=== PATIENT | male | born 1975 | race Caucasian/White ===

== ENCOUNTER 2020-02-21 08:45 | Emergency (ER) | payer OTHER ==
[~2020-02-21] VITALS: Ht 165.1 cm; Wt 72.7 kg
[2020-02-21] MEDS ORDERED: IOHEXOL 350 MG/ML 100 ML VIAL. IV ONE (09:15)
--- NOTE | 2020-02-21 09:15 | PHYS DOC ---
Past History Past Medical History: Other (PTSD, TBI) Adult General HPI HPI Patient is a 44-year-old male who presents for concern of DVT/PE. 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 No history of clotting disorders, no hemoptysis, inherited coagulopathies etc, no daily use of blood thinners, no prior coagulopathic work- up. Patient had and approximately 20-hour flight from [facility] that landed late yesterday evening. On arrival, patient noticed focal pain of right posterior calf and knee. Patient was able to sleep and woke up this morning with continued pain. He also notes new onset dyspnea when walking up stairs to his apartment which is new for him. He discussed his symptoms with who is a family medicine physician, she subsequently recommended he seek medical evaluation [facility] [employer] [facility]. Nonetheless, it is the weekend and he could not be seen and evaluated, on-call nurse subsequently referred patient to our facility for evaluation for DVT/PE rule out given concerning symptoms of right lower extremity pain and new onset dyspnea after long distance travel in seated position. Review of Systems Review of Systems Fourteen body systems of review of systems have been reviewed. See HPI for pertinent positives and negative responses, other nesbitt all other systems are negative, non-pertinent or non-contributory Current Medications Current Medications Current Medications Medications (Trade) Dose Ordered Sig/Yue Start Time Stop Time Status Last Admin Dose Admin Iohexol (Omnipaque 350 Mg/ml) 100 ml 1X ONCE 02/21/20 09:15 02/21/20 09:16 UNV Physical Exam Physical Exam Constitutional: Well developed, well nourished, no acute distress, non-toxic appearance. HENT: Normocephalic, atraumatic, bilateral external ears normal, oropharynx moist, no oral exudates, nose normal. Eyes: PERRLA, EOMI, conjunctiva normal, no discharge. Neck: Normal range of motion, no tenderness, supple, no stridor. Cardiovascular: Heart rate regular, sinus rhythm, no murmurs rubs or gallops Lungs & Thorax: Bilateral breath sounds clear to auscultation Abdomen: Bowel sounds normal, soft, no tenderness, no masses, no pulsatile ma sses. Nonsurgical abdomen, no peritoneal signs Skin: Warm, dry, no erythema, no rash. Back: No tenderness, no CVA tenderness. Extremities: No cyanosis, no clubbing, ROM intact, no edema. Tenderness to palpation of posterior right knee without any palpable cords or abnormalities, positive Homans sign of right calf, bilateral circumference of lower extremities equal and symmetric Neurologic: Alert and oriented X 3, grossly normal motor & sensory function, no focal deficits noted. Psychologic: Affect normal, judgement normal, mood normal. Current Patient Data Vital Signs Vital Signs Date Time Temp Pulse Resp B/P (MAP) Pulse Ox O2 Delivery O2 Flow Rate FiO2 02/21/20 09:38 97.9 62 18 139/91 (107) 100 Lab Results Laboratory Tests Test 02/21/20 09:11 White Blood Count 6.3 x10^3/uL (4.0-11.0) Red Blood Count 4.34 x10^6/uL (4.30-5.70) Hemoglobin 13.5 g/dL (13.0-17.5) Hematocrit 40.2 % (39.0-53.0) Mean Corpuscular Volume 93 fL (79-100) Mean Corpuscular Hemoglobin 31 pg (25-35) Mean Corpuscular Hemoglobin Concent 34 g/dL (31-37) Red Cell Distribution Width 13.5 % (11.5-14.5) Platelet Count 167 x10^3/uL (140-400) Neutrophils (%) (Auto) 51 % (31-73) Lymphocytes (%) (Auto) 36 % (24-48) Monocytes (%) (Auto) 8 % (0-9) Eosinophils (%) (Auto) 4 % (0-3) Basophils (%) (Auto) 0 % (0-3) Neutrophils # (Auto) 3.2 x10^3uL (1.8-7.7) Lymphocytes # (Auto) 2.3 x10^3/uL (1.0-4.8) Monocytes # (Auto) 0.5 x10^3/uL (0.0-1.1) Eosinophils # (Auto) 0.3 x10^3/uL (0.0-0.7) Basophils # (Auto) 0.0 x10^3/uL (0.0-0.2) Sodium Level 141 mmol/L (136-145) Potassium Level 3.7 mmol/L (3.5-5.1) Chloride Level 103 mmol/L (98-107) Carbon Dioxide Level 25 mmol/L (21-32) Anion Gap 13 (6-14) Blood Urea Nitrogen 17 mg/dL (8-26) Creatinine 1.2 mg/dL (0.7-1.3) Estimated GFR (Cockcroft-Gault) 65.5 Glucose Level 92 mg/dL (70-99) Calcium Level 8.9 mg/dL (8.5-10.1) Troponin I Quantitative < 0.017 ng/mL (0-0.055) ZZ-[id number]-Type Natriuretic Peptide 22 pg/mL (0-124) EKG EKG ECG ordered and interpreted by myself at 0937 hrs. as sinus rhythm at 61 bpm, unremarkable intervals, left axis deviation, no acute ischemic findings, no STEMI Radiology/Procedures Radiology/Procedures PROCEDURE: VENOUS LOWER EXTREMITY RIGHT EXAM: Right lower extremity venous Doppler sonogram. HISTORY: Pain and swelling. TECHNIQUE: Ahuja scale and color Doppler sonographic evaluation of the right lower extremity veins with spectral waveform analysis was performed. FINDINGS: There is normal color flow, normal compressibility and there are normal spectral waveforms in the common femoral, superficial femoral, popliteal, posterior tibial and greater saphenous veins. IMPRESSION: No Doppler evidence of lower extremity deep venous thrombosis. Electronically signed by: Tania oGdinez MD (02/21/2020 9:51 AM) [id number] PROCEDURE: CT ANGIOGRAPHY CHEST Study: CT CHEST WITH CONTRAST - PULMONARY ANGIOGRAM History: Shortness of breath. Pulmonary embolism. Comparison: None. Technique: Helical CT of the chest performed after the administration of 100 cc Omnipaque 350 intravenous contrast and timed for angiographic evaluation of the pulmonary arteries per PE protocol. Coronal and sagittal 3D MIP reformations were obtained. One or more of the following individualized dose reduction techniques were utilized for this examination: 1. Automated exposure control 2. Adjustment of the mA and/or kV according to patient size 3. Use of iterative reconstruction technique. Findings: Pulmonary Arteries: No main, lobar or segmental pulmonary embolism. Normal main pulmonary artery caliber. Heart/Systemic Vasculature: Aberrant right subclavian artery coursing posterior to the esophagus. Nonaneurysmal aorta. No CT findings of overt right heart strain. Mediastinum: Probable very small hiatal hernia. No pathologically enlarged mediastinal or hilar lymph nodes. Lungs: Variant anatomy azygos lobe. Minimal volume loss. No localized consolidation. No pleural effusion or pneumothorax. The central airways are normally aerated. Neck/Axilla/Body Wall: Unremarkable. Upper Abdomen: No acute abnormality. Bones: Mineralization appearing to be within the right subscapularis tendon substance, image 1 series 4. Tiny foci of mineralization along the greater tuberosity could be within the rotator cuff tendons as well. The appearance is most typical of hydroxyapatite deposition. Probable prior inferior labral repair on the left. No acute or aggressive osseous process. Scattered Schmorl's nodes. Miscellaneous: None. IMPRESSION: 1. No pulmonary embolism or other acute abnormality is seen to account for the patient's symptoms. 2. Incidental note made of an aberrant right subclavian artery coursing posterior to the esophagus. 3. Additional chronic observations as above. Electronically signed by: TACO MOBLEY MD (02/21/2020 9:52 AM) [id number] Course & Med Decision Making Course & Med Decision Making Well-appearing ambulatory patient seen on immediate ER arrival ABCs non-concerning Comprehensive history and physical exam obtained, high suspicion for DVT/PE and so further diagnostic studies ordered Patient asymptomatic at rest and was reevaluated numerous times throughout ER course without change in symptomology ER work-up reviewed, discussed most likely diagnosis of less severe self- limiting condition like musculoskeletal strain of the torso versus fatigue from long distance travel I did disclose this might be a acute presentation of more concerning pathology and so, he should monitor his symptoms and follow-up with on post PCP in upcoming 1 to 10 days time Strict return precautions were discussed with good understanding by patient, all questions and concerns addressed prior to ER departure in stable condition Yobani Disclaimer Dragsuleiman Disclaimer This electronic medical record was generated, in whole or in part, using a voice recognition dictation system. Departure Departure: Impression: Primary Impression: Dyspnea on exertion Additional Impression: Pain of right leg Disposition: HOME/RESIDENCE PRIOR TO ADM Condition: STABLE Referrals: PCP,NO (PCP) Patient Instructions: Back Exercises, Generic, SportsMed Additional Instructions: As discussed prior to ER departure, please call Tre Evans's primary care office to schedule outpatient ER follow-up in upcoming 1 to 14 days time If continued right leg pain and/or dyspnea on exertion persists there may be indication for further diagnostic testing and/or imaging Thankfully, there were no findings of any acute blood clot in leg or chest today. All laboratory analysis showed organ level/function, blood, and electrolytes are all within normal limits without any evidence of heart strain If any new or persisting symptoms arise between now and outpatient primary care follow-up, please feel free to call our emergency department and/or present for formal evaluation It was a pleasure to take care of you and I wish you a speedy recovery! Justification of Admission: Justification of Admission: Justification of Admission Dx: N/A Problem Qualifiers ERICA CRAWFORD DO Feb 21, 2020 09:15
[2020-02-21 09:25] LABS: BASO % 0 % (0-3); EOS # 0.3 x10^3/uL (0.0-0.7); EOS % 4 % (0-3); HEMATOCRIT 40.2 % (39.0-53.0); HEMOGLOBIN 13.5 g/dL (13.0-17.5); LYMPH # 2.3 x10^3/uL (1.0-4.8); LYMPH % 36 % (24-48); MEAN CORPUSCULAR HEMOGLOBIN 31 pg (25-35); MEAN CORPUSCULAR HGB CONC 34 g/dL (31-37); MEAN CORPUSCULAR VOLUME 93 fL (79-100); MONO # 0.5 x10^3/uL (0.0-1.1); MONO % 8 % (0-9); NEUT # 3.2 x10^3uL (1.8-7.7); NEUT % 51 % (31-73); PLATELET COUNT 167 x10^3/uL (140-400); RED BLOOD COUNT 4.34 x10^6/uL (4.30-5.70); RED CELL DISTRIBUTION WIDTH 13.5 % (11.5-14.5); WHITE BLOOD COUNT 6.3 x10^3/uL (4.0-11.0)
[2020-02-21 09:33] LABS: CALCIUM 8.9 mg/dL (8.5-10.1); CREATININE 1.2 mg/dL (0.7-1.3); GFR 65.5; POTASSIUM 3.7 mmol/L (3.5-5.1)
[2020-02-21 09:38] VITALS: BP 139/91
--- NOTE | 2020-02-21 09:44 | EKG ---
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
--- NOTE | 2020-02-21 09:54 | RAD ---
EXAM: Right lower extremity venous Doppler sonogram. HISTORY: Pain and swelling. TECHNIQUE: Ahuja scale and color Doppler sonographic evaluation of the right lower extremity veins with spectral waveform analysis was performed. FINDINGS: There is normal color flow, normal compressibility and there are normal spectral waveforms in the common femoral, superficial femoral, popliteal, posterior tibial and greater saphenous veins. IMPRESSION: No Doppler evidence of lower extremity deep venous thrombosis. Electronically signed by: Tania Godinez MD (02/21/2020 9:51 AM) [id number]
--- NOTE | 2020-02-21 09:55 | RAD ---
Study: CT CHEST WITH CONTRAST - PULMONARY ANGIOGRAM History: Shortness of breath. Pulmonary embolism. Comparison: None. Technique: Helical CT of the chest performed after the administration of 100 cc Omnipaque 350 intravenous contrast and timed for angiographic evaluation of the pulmonary arteries per PE protocol. Coronal and sagittal 3D MIP reformations were obtained. One or more of the following individualized dose reduction techniques were utilized for this examination: 1. Automated exposure control 2. Adjustment of the mA and/or kV according to patient size 3. Use of iterative reconstruction technique. Findings: Pulmonary Arteries: No main, lobar or segmental pulmonary embolism. Normal main pulmonary artery caliber. Heart/Systemic Vasculature: Aberrant right subclavian artery coursing posterior to the esophagus. Nonaneurysmal aorta. No CT findings of overt right heart strain. Mediastinum: Probable very small hiatal hernia. No pathologically enlarged mediastinal or hilar lymph nodes. Lungs: Variant anatomy azygos lobe. Minimal volume loss. No localized consolidation. No pleural effusion or pneumothorax. The central airways are normally aerated. Neck/Axilla/Body Wall: Unremarkable. Upper Abdomen: No acute abnormality. Bones: Mineralization appearing to be within the right subscapularis tendon substance, image 1 series 4. Tiny foci of mineralization along the greater tuberosity could be within the rotator cuff tendons as well. The appearance is most typical of hydroxyapatite deposition. Probable prior inferior labral repair on the left. No acute or aggressive osseous process. Scattered Schmorl's nodes. Miscellaneous: None. IMPRESSION: 1. No pulmonary embolism or other acute abnormality is seen to account for the patient's symptoms. 2. Incidental note made of an aberrant right subclavian artery coursing posterior to the esophagus. 3. Additional chronic observations as above. Electronically signed by: TACO MOBLEY MD (02/21/2020 9:52 AM) [id number]
[2020-02-21] MEDS ORDERED: hydrOXYzine HCL 25 MG TABLET PO ONE (10:30)
== END 2020-02-21 10:22 | disposition home or self-care (01) ==
LOC: ER 08:45
DX: R06.09 Other forms of dyspnea (principal); M79.604 Pain in right leg; M25.561 Pain in right knee; F43.10 Post-traumatic stress disorder, unspecified; Z87.820 Personal history of traumatic brain injury
CPT/HCPCS: 36415; 71275; 80048; 83880; 84484; 85025; 93005; 93971; 99285-25